=== PATIENT | male | born 1995 | race Caucasian/White ===

== ENCOUNTER 2017-02-21 12:27 | Emergency (ER) | payer BC ==
[~2017-02-21] VITALS: Ht 177.8 cm; Wt 81.7 kg
[2017-02-21 12:39] VITALS: TEMP 37.7; Ht 177.8 cm; Wt 81.7 kg
[2017-02-21] MEDS ORDERED: DOXY100C76 PO (13:40)
--- NOTE | 2017-02-21 13:41 | EMERGENCY ROOM VISIT NOTE ---
ED Visit Note First contact with patient: 12:47 CHIEF COMPLAINT: Rash on left flank times one day HISTORY OF PRESENT ILLNESS: Patient is an otherwise healthy 22-year-old white male who presents to the emergency department for evaluation of fatigue, body and muscle aches, weakness, low-grade fever 3 days, with associated rash on his left flank that he just noticed today. Patient reports that over the weekend, he felt very poorly, he had generalized body and muscle aches, felt fatigued and slept most of the day. He had a fever that ran between 9900F orally, with associated sweats and chills. He states that his fever responded to [id number] medications. Today while getting dressed, he noted a slightly red rash on his left flank. He denies that it was itchy or painful. He also has a similar rash near his left axilla. His aunt is a nurse, who encouraged him to come to the emergency department for evaluation. He is concerned regarding possible Lyme disease. He is outside for both work and recreational activities where he could've been exposed to a tick although he is not aware of any specific bite. REVIEW OF SYSTEMS: Review of systems as per HPI. All other systems reviewed were negative. At least 6 systems reviewed. PMH: Electronic medical records are reviewed and summarized as above/below. See Problem List. SOCIAL HISTORY: Patient lives at home. Employed. Nonsmoker. PHYSICAL EXAM: Vital Signs: Reviewed Nurse's notes. Temperature 37.7C orally. MENTAL STATUS: Alert and cooperative. Nontoxic appearing. HEAD: Atraumatic, without temporal or scalp tenderness. EYES: PERRL, EOMI, no discharge or injection. EARS: Tympanic membranes intact, not inflamed, have normal contour. External canals clear. NOSE: Nares patent, turbinates edematous and boggy with clear rhinorrhea. MOUTH: Mucous membranes moist, no lesions, tongue and gums appear normal. THROAT: No pharyngeal injection, exudates, or tonsillar hypertrophy. Airway is patent. NECK: Supple, nontender, no lymphadenopathy. HEART: Regular rate and rhythm without murmurs, ectopy, gallops, or rubs. LUNGS: Clear to auscultation and breath sounds equal, no wheezes, rales, or rhonchi. SKIN: Examination of the patient's left flank show a circular erythematous, non- blanchable rash which appears consistent with an erythema migrans. It is nontender to palpation. No petechiae, vesicles or skin sloughing are noted. He has a similar rash in the left axilla with associated left axillary lymphadenopathy. There is no lymphangitic streaking. No fluctuance or induration to suspect abscess. NEUROLOGICAL: Sensory and motor functions grossly intact. Normal gait. EMERGENCY DEPARTMENT COURSE: Patient was seen and examined as above. His presentation does appear consistent with an erythema migrans and therefore he' ll be covered with doxycycline for Lyme disease. Differential diagnosis also entertained included cellulitis, exudate, influenza or other viral illness, among others. He was educated signs or symptoms for which she should return to the emergency department. Limitations of Lyme testing were reviewed with him due to the early nature of his presentation and he was agreeable to defer any laboratory studies at this time. He was discharged home in good condition. He was given his first dose of doxycycline in the emergency department. Current/Historical Medications Scheduled Doxycycline Monohydrate (Monodox), 100 MG PO BID Allergies Coded Allergies: No Known Allergies (Unverified , 02/21/17) Vital Signs Date Time Temp Pulse Resp B/P (MAP) Pulse Ox O2 Delivery O2 Flow Rate FiO2 02/21/17 14:00 104 16 130/73 100 02/21/17 12:39 37.7 99 18 117/72 99 Room Air Medications Administered Medications (Trade) Dose Ordered Sig/Blair Route Start Time Stop Time Status Last Admin Dose Admin Doxycycline Hyclate (Vibramycin Cap) 100 mg ONE ONCE PO 02/21/17 13:45 02/21/17 13:46 DC 02/21/17 13:56 100 MG Departure Information Impression Primary Impression: Erythema migrans (Lyme disease) Prescriptions Doxycycline Monohydrate (Monodox) 100 Mg Cap 100 MG PO BID for 21 Days, #42 CAP Prov: Bernadette Duque PA 02/21/17 Referrals No Doctor, Assigned (PCP) Patient Instructions My [facility] Additional Instructions Doxycycline 100mg: Take one pill twice daily for 21 days for your infection. Take with food, but avoid dairy. Avoid prolonged sun exposure since this medication makes you temporarily more susceptible to sunburns. All antibiotics can cause diarrhea. If this occurs and you feel worse or it does not resolve in 1-2 days follow up with your doctor or return to the Emergency Department as this could be signs of serious underlying problems. Any medication can cause an allergic reaction, stop the pills immediately and return to the ER for rash, hives, breathing difficulties, or swelling. Ibuprofen(Motrin, Advil) may be used for fever or pain. Use 600mg every six hours as needed. Take with food. Avoid using more than 2400mg in a 24 hour period. Do not use 2400mg per day for more than three consecutive days without physician direction. Prolonged inappropriate use can lead to stomach upset or ulcers. This is available over the counter and typically comes in 200mg tablets. (AND/OR) Acetaminophen(Tylenol) may be used for fever or pain. Use 1000mg every eight hours as needed. Avoid using more than 3000mg in a 24 hour period. This is available over the counter. Continue current medications. Return to the ER for severe pain, persistent fevers, spreading redness, headaches, vomiting, or any worsening of your condition. Follow up with your primary physician within 2-3 days for a recheck of the current condition.
[2017-02-21] MEDS ORDERED: DOXYCYCLINE HYCLATE 100 MG CAP PO ONE (13:45)
[2017-02-21 14:00] VITALS: BP 130/73; PULSE 104; O2SAT 100
== END 2017-02-21 14:01 | disposition home or self-care (01) ==
LOC: C.EDB 12:30 → C.EDD 14:01
DX: A26.0 Cutaneous erysipeloid (principal); A69.20 Lyme disease, unspecified